=== PATIENT | male | born 1995 ===

== ENCOUNTER 2021-03-12 20:02 | Emergency (ER) | payer OTHER ==
[2021-03-12 23:41] LABS: Basophils % 0.6 % (0-1.3); Hematocrit 42.8 % (39.6-49.0); Lymphocytes % 21.8 % (15.3-44.8); MPV 8.9 fL (7.6-11.3); RBC Red Blood Cell Count 4.76 M/uL (4.33-5.43)
[2021-03-12 23:42] LABS: Protime INR 1.15
[2021-03-12] MEDS ORDERED: NA CHLORIDE 0.9% 2,000 ML ONE (23:46)
[2021-03-12 23:56] LABS: ALT/SGPT 32 U/L (12-78); AST/SGOT 19 U/L (15-37); Albumin 3.9 g/dL (3.4-5.0); Alkaline Phosphatase 61 U/L (45-117); BUN Blood Urea Nitrogen 15 mg/dL (7-18); Bicarbonate 28 mmol/L (21-32); Bilirubin Direct 0.1 mg/dL (0-0.2); Bilirubin Total 0.4 mg/dL (0.2-1.0); Glucose Level 89 mg/dL (74-106); Magnesium 2.3 mg/dL (1.8-2.4); NT PRO-BNP 17 pg/mL (<125); Potassium 3.3 mmol/L (3.5-5.1); Protein, Total 7.6 g/dL (6.4-8.2); Sodium Level 140 mmol/L (136-145); Troponin (Emerg Dept Use Only) < 0.02 ng/mL (0.0-0.045)
--- NOTE | 2021-03-13 00:30 | ER ---
Nurse's Notes [facility] Name: Aggie Osborne Age: 25 yrs Sex: Male : 1995 Arrival Date: 03/12/2021 Time: 20:07 Bed Waiting Private MD: Diagnosis: Heat exhaustion, unspecified;Heat cramp;Hypokalemia Presentation: 03/12 20:08 Chief complaint: EMS states: Called to [facility] for patient with heat stroke; lp1 dizzy weak nausea since 1300 today; staff reports elevated blood pressures and called EMS; patient reports cramping. Risk Assessment: Do you want to hurt yourself or someone else? Patient reports no desire to harm self or others. Onset of symptoms was March 12, 2021. 20:08 Method Of Arrival: EMS: [facility] lp1 20:08 Acuity: CRYSTAL 3 lp1 23:19 Coronavirus screen: Client denies travel out of the [place] in the last 14 days. Ebola lh3 Screen: No symptoms or risks identified at this time. Initial Sepsis Screen: Does the patient meet any 2 criteria? No. Patient's initial sepsis screen is negative. Does the patient have a suspected source of infection? No. Patient's initial sepsis screen is negative. Triage Assessment: 23:19 General: Appears in no apparent distress. Behavior is calm, cooperative, appropriate lh3 for age. Pain: Denies pain. Derm: No deficits noted. Historical: - Allergies: 20:10 No Known Allergies; lp1 - Home Meds: 20:10 None [Active]; lp1 - PMHx: 20:10 None; lp1 - PSHx: 20:10 None; lp1 - Immunization history:: Client reports having NOT received the Covid vaccine. - Social history:: Smoking status: Patient denies any tobacco usage or history of. Patient/guardian denies using alcohol, street drugs. - Family history:: not pertinent. Screenin:20 Abuse screen: Denies threats or abuse. Nutritional screening: No deficits noted. lh3 Tuberculosis screening: No symptoms or risk factors identified. Fall Risk IV access (20 points). Assessment: 23:20 General: Appears in no apparent distress. Behavior is calm, cooperative, appropriate lh3 for age. 03/13 01:25 Reassessment: Patient is alert, oriented x 3, equal unlabored respirations, skin bb warm/dry/pink. pt verbalized understanding of and agrees to plan of care discharge instructions given pt ambulated with steady gait to exit accompanied by co-worker. Vital Signs: 03/12 21:37 BP 119 / 66; Pulse 85; Resp 17; Temp 98; Pulse Ox 98% ; Weight 90 kg; Height 5 ft. 10 lp1 in. (177.80 cm); Pain 0/10; 03/13 01:27 BP 112 / 79; Pulse 68; Resp 16 S; Pulse Ox 100% on R/A; bb 03/12 21:37 Body Mass Index 28.47 (90.00 kg, 177.80 cm) lp1 ED Course: 03/12 20:07 Patient arrived in ED. bp1 20:10 Triage completed. lp1 20:11 Arm band placed on. lp1 23:00 Walter Bowden MD is Attending Physician. niida 23:20 Patient has correct armband on for positive identification. lh3 23:20 No provider procedures requiring assistance completed. Inserted saline lock: 20 gauge lh3 in left antecubital area, using aseptic technique. 23:22 Monica Dumont, RN is Primary Nurse. lh3 23:47 XRAY Chest (1 view) In Process Unspecified. EDMS 03/13 01:27 IV discontinued, intact, bleeding controlled, No redness/swelling at site. Pressure bb dressing applied. Administered Medications: 03/12 23:34 Drug: NS 0.9% 1000 ml Route: IV; Rate: 1 bolus; Site: left antecubital; [facility] 03/13 01:24 Follow up: IV Status: Completed infusion; IV Intake: 1000ml bb 03/12 23:35 Drug: NS 0.9% 1000 ml Route: IV; Rate: 1 bolus; Site: left antecubital; [facility] 03/13 01:24 Follow up: IV Status: Completed infusion; IV Intake: 1000ml bb 00:40 Drug: Potassium Effervescent Tablet 50 mEq Route: PO; bb 01:24 Follow up: Response: No adverse reaction bb Intake: 01:24 IV: 1000ml; Total: 1000ml. bb 01:24 IV: 1000ml; Total: 2000ml. bb Outcome: 00:29 Discharge ordered by . nidia 01:27 Discharged to home ambulatory. bb 01:27 Condition: stable 01:27 Discharge instructions given to patient, Instructed on discharge instructions, follow up and referral plans. Demonstrated understanding of instructions, follow-up care. 01:28 Patient left the ED. manav Signatures: Dispatcher [employer] Walter Boateng MD MD cha Ballard, Brenda, RN RN bb Darcy Tyson RN RN lp1 Jessica Villa Latisha, RN RN lh3
--- NOTE | 2021-03-13 00:30 | EDPHYS ---
Physician Documentation [facility] Name: Aggie Osborne Age: 25 yrs Sex: Male : 1995 Arrival Date: 03/12/2021 Time: 20:07 Bed Waiting Private MD: ED Physician Walter Bowden HPI: 03/13 00:23 This 25 yrs old Male presents to ER via EMS with complaints of Heat Exposure. [facility] 00:23 IN HEAT ALL DAY , CRAMPING. Onset: The symptoms/episode began/occurred just prior to [facility] arrival, yesterday. Severity of symptoms: At their worst the symptoms were mild moderate in the emergency department the symptoms are unchanged. The patient has experienced similar episodes in the past, a few times. Historical: - Allergies: 03/12 20:10 No Known Allergies; lp1 - Home Meds: 20:10 None [Active]; lp1 - PMHx: 20:10 None; lp1 - PSHx: 20:10 None; lp1 - Immunization history:: Client reports having NOT received the Covid vaccine. - Social history:: Smoking status: Patient denies any tobacco usage or history of. Patient/guardian denies using alcohol, street drugs. - Family history:: not pertinent. ROS: 03/13 00:23 Constitutional: Negative for fever, chills, and weight loss, Eyes: Negative for injury, nidia pain, redness, and discharge, ENT: Negative for injury, pain, and discharge, Neck: Negative for injury, pain, and swelling, Cardiovascular: Negative for chest pain, palpitations, and edema, Respiratory: Negative for shortness of breath, cough, wheezing, and pleuritic chest pain, Abdomen/GI: Negative for abdominal pain, nausea, vomiting, diarrhea, and constipation, Back: Negative for injury and pain, : Negative for injury, bleeding, discharge, and swelling, Skin: Negative for injury, rash, and discoloration, Neuro: Negative for headache, weakness, numbness, tingling, and seizure, Psych: Negative for depression, anxiety, suicide ideation, homicidal ideation, and hallucinations, Allergy/Immunology: Negative for hives, rash, and allergies, Endocrine: Negative for neck swelling, polydipsia, polyuria, polyphagia, and marked weight changes, Hematologic/Lymphatic: Negative for swollen nodes, abnormal bleeding, and unusual bruising. MS/extremity: Positive for pain, of the right arm, left arm, right leg and left leg. Exam: 00:23 Constitutional: This is a well developed, well nourished patient who is awake, alert, nidia and in no acute distress. Head/Face: Normocephalic, atraumatic. Eyes: Pupils equal round and reactive to light, extra-ocular motions intact. Lids and lashes normal. Conjunctiva and sclera are non-icteric and not injected. Cornea within normal limits. Periorbital areas with no swelling, redness, or edema. ENT: Nares patent. No nasal discharge, no septal abnormalities noted. Tympanic membranes are normal and external auditory canals are clear. Oropharynx with no redness, swelling, or masses, exudates, or evidence of obstruction, uvula midline. Mucous membranes moist. Neck: Trachea midline, no thyromegaly or masses palpated, and no cervical lymphadenopathy. Supple, full range of motion without nuchal rigidity, or vertebral point tenderness. No Meningismus. Chest/axilla: Normal chest wall appearance and motion. Nontender with no deformity. No lesions are appreciated. Cardiovascular: Regular rate and rhythm with a normal S1 and S2. No gallops, murmurs, or rubs. Normal PMI, no JVD. No pulse deficits. Respiratory: Lungs have equal breath sounds bilaterally, clear to auscultation and percussion. No rales, rhonchi or wheezes noted. No increased work of breathing, no retractions or nasal flaring. Abdomen/GI: Soft, non-tender, with normal bowel sounds. No distension or tympany. No guarding or rebound. No evidence of tenderness throughout. Back: No spinal tenderness. No costovertebral tenderness. Full range of motion. Skin: Warm, dry with normal turgor. Normal color with no rashes, no lesions, and no evidence of cellulitis. MS/ Extremity: Pulses equal, no cyanosis. Neurovascular intact. Full, normal range of motion. Neuro: Awake and alert, GCS 15, oriented to person, place, time, and situation. Cranial nerves II-XII grossly intact. Motor strength 5/5 in all extremities. Sensory grossly intact. Cerebellar exam normal. Normal gait. Psych: Awake, alert, with orientation to person, place and time. Behavior, mood, and affect are within normal limits. 00:23 ECG was reviewed by the Attending Physician. Vital Signs: 03/12 21:37 BP 119 / 66; Pulse 85; Resp 17; Temp 98; Pulse Ox 98% ; Weight 90 kg; Height 5 ft. 10 lp1 in. (177.80 cm); Pain 0/10; 03/13 01:27 BP 112 / 79; Pulse 68; Resp 16 S; Pulse Ox 100% on R/A; bb 03/12 21:37 Body Mass Index 28.47 (90.00 kg, 177.80 cm) lp1 MDM: 03/12 23:00 Patient medically screened. [facility] 03/13 00:27 Data reviewed: vital signs, nurses notes, lab test result(s), EKG, radiologic studies, nidia plain films. Data interpreted: quality assurance monitor body: rate is 85 beats/min, rhythm is regular, Pulse oximetry: is not applicable for this patient encounter. Test interpretation: by ED physician or midlevel provider: ECG, plain radiologic studies. Counseling: I had a detailed discussion with the patient and/or guardian regarding: the historical points, exam findings, and any diagnostic results supporting the discharge/admit diagnosis, lab results, radiology results. 00:31 Medication response: FLUIDS, IV AND PO.. [facility] 03/12 23:00 Order name: Basic Metabolic Panel [facility] 03/12 23:00 Order name: CBC with Diff; Complete Time: 00:19 [facility] 03/12 23:00 Order name: LFT's; Complete Time: 00:19 [facility] 03/12 23:00 Order name: Magnesium; Complete Time: 00:19 [facility] 03/12 23:00 Order name: NT PRO-BNP; Complete Time: 00:19 [facility] 03/12 23:00 Order name: PT-INR; Complete Time: 00:19 [facility] 03/12 23:00 Order name: Troponin (emerg Dept Use Only); Complete Time: 00:19 [facility] 03/12 23:00 Order name: XRAY Chest (1 view) [facility] 03/12 23:00 Order name: EKG; Complete Time: 23:02 [facility] 03/12 23:01 Order name: Basic Metabolic Panel; Complete Time: 00:19 [facility] 03/13 00:39 Order name: Urine Dipstick-Ancillary [facility] 03/12 23:00 Order name: Cardiac monitoring [facility] 03/12 23:00 Order name: EKG - Nurse/Tech; Complete Time: 23:56 [facility] 03/12 23:00 Order name: IV Saline Lock [facility] 03/12 23:00 Order name: Labs collected and sent [facility] 03/12 23:00 Order name: O2 Per Protocol [facility] 03/12 23:00 Order name: O2 Sat Monitoring [facility] EC:23 Rate is 76 beats/min. Rhythm is regular. QRS [employer] is Normal. AL interval is normal. QRS nidia interval is normal. QT interval is normal. No Q waves. T waves are Normal. No ST changes noted. Clinical impression: NSR w/ Non-specific ST/T Changes and No evidence of ischemia. Interpreted by me. Reviewed by me. Administered Medications: 03/12 23:34 Drug: NS 0.9% 1000 ml Route: IV; Rate: 1 bolus; Site: left antecubital; [facility] 03/13 01:24 Follow up: IV Status: Completed infusion; IV Intake: 1000ml 03/12 23:35 Drug: NS 0.9% 1000 ml Route: IV; Rate: 1 bolus; Site: left antecubital; [facility] 03/13 01:24 Follow up: IV Status: Completed infusion; IV Intake: 1000ml bb 00:40 Drug: Potassium Effervescent Tablet 50 mEq Route: PO; bb 01:24 Follow up: Response: No adverse reaction bb Disposition Summary: 03/13/21 00:29 Discharge Ordered Location: Home nidia Problem: new nidia Symptoms: have improved nidia Condition: Stable nidia Diagnosis - Heat exhaustion, unspecified nidia - Heat cramp nidia - Hypokalemia nidia Followup: nidia - With: Private Physician - When: 2 - 3 days - Reason: Recheck today's complaints, Continuance of care, Re-evaluation by your physician Discharge Instructions: - Discharge Summary Sheet nidia - Potassium Content of Foods nidia - Heat Exhaustion nidia - Hypokalemia nidia - Preventing Heat Exhaustion, Adult nidia Forms: - Medication Reconciliation Form nidia - Thank You Letter nidia - Antibiotic Education nidia - Prescription Opioid Use nidia - Work release form bb Signatures: Dispatcher [employer] Walter Boateng MD MD cha Ballard, Brenda RN RN bb Darcy Tyson, RN RN lp1 Monica Dumont RN RN lh3 Corrections: (The following items were deleted from the chart) 00:34 03/12 23:00 Urine Dipstick-Ancillary ordered. nidia bb
[2021-03-13 00:40] LABS: Urine Blood Negative (Negative); Urine Glucose Negative (Negative); Urine Protein Negative (Negative); Urine Specific Gravity 1.015 (1.005-1.030)
[2021-03-13] MEDS ORDERED: POTASSIUM 25 MEQ EFFERV TAB ONE (01:00)
[2021-03-13 01:38] VITALS: TEMP 98
[2021-03-13 01:40] VITALS: BP 112/79; O2SAT 100
--- NOTE | 2021-03-13 08:55 | RAD REPORT ---
EXAM DESCRIPTION: RAD - Chest Single View - 03/12/2021 11:47 pm CLINICAL HISTORY: COUGH Chest pain. COMPARISON: No comparisons FINDINGS: Portable technique limits examination quality. The lungs are grossly clear. The heart is normal in size. No displaced fractures. IMPRESSION: No acute intrathoracic process suspected.
== END 2021-03-13 01:28 | disposition home or self-care (01) ==
LOC: ER 20:02
DX: T67.2XXA Heat cramp, initial encounter (principal); E87.6 Hypokalemia
CPT/HCPCS: 36415; 71045; 80048; 80076; 81003; 83735; 83880; 84484; 85025; 85610; 93005; 96360; 96361; 99284; J7030